=== PATIENT | female | born 1995 ===

== ENCOUNTER 2016-09-04 15:11 | Emergency (ER) | payer BC, OTHER ==
--- NOTE | 2016-09-04 15:43 | UC ---
Throat Pain/Nasal Wojciech HPI - HPI Summary HPI Summary: sore throat for 1 days has been exposed at work. - History of Current Complaint Chief Complaint: UCGeneralIllness Stated Complaint: SORE THROAT Time Seen by Provider: 09/04/16 15:34 Hx Obtained From: Patient Hx Last Menstrual Period: unsure - on nexplanon ?: No Onset/Duration: Sudden Onset, Lasting Hours Severity: Moderate Cough: None Associated Signs & Symptoms: Positive: Dysphagia - Allergies/Home Medications Allergies/Adverse Reactions: Allergies Allergy/AdvReac Type Severity Reaction Status Date / Time No Known Allergies Allergy Verified 09/04/16 15:31 PMH/Surg Hx/FS Hx/Imm Hx - Surgical History Surgical History: None - Family History Known Family History: Negative: Cardiac Disease, Hypertension - Social History Alcohol Use: None Substance Use Type: None Smoking Status (MU): Never Smoked Tobacco - Immunization History Most Recent Influenza Vaccination: Not the Season Review of Systems Constitutional: Fever Skin: Negative Eyes: Negative ENT: Sore Throat, Ear Ache, Nasal Discharge Respiratory: Cough Cardiovascular: Negative Gastrointestinal: Negative Genitourinary: Negative Motor: Negative Neurovascular: Negative Musculoskeletal: Negative Neurological: Headache Psychological: Negative All Other Systems Reviewed And Are Negative: Yes Physical Exam Triage Information Reviewed: Yes Appearance: Ill-Appearing, Pain Distress, Obese Vital Signs: Initial Vital Signs Temp 99.4 F 09/04/16 15:32 Pulse 95 09/04/16 15:32 Resp 16 09/04/16 15:32 BP 96/53 09/04/16 15:32 Pulse Ox 100 09/04/16 15:32 Vital Signs Reviewed: Yes Eye Exam: Normal Eyes: Positive: Conjunctiva Clear ENT: Positive: Pharyngeal erythema, TMs normal, TM bulging, Tonsillar swelling, Tonsillar exudate Dental Exam: Normal Neck exam: Normal Neck: Positive: Supple, Nontender, Enlarged Nodes @ - bilateral cervical Respiratory Exam: Normal Respiratory: Positive: Chest non-tender, No respiratory distress, No accessory muscle use, Wheezing, Inspiration Cardiovascular Exam: Normal Cardiovascular: Positive: RRR, No Murmur, Pulses Normal Abdominal Exam: Normal Abdomen Description: Positive: Nontender, No Organomegaly, Soft Bowel Sounds: Positive: Present Musculoskeletal Exam: Normal Musculoskeletal: Positive: Strength Intact, ROM Intact, No Edema Neurological Exam: Normal Neurological: Positive: Alert, Muscle Tone Normal Psychological Exam: Normal Skin Exam: Normal Throat Pain/Nasal Course/Dx - Course Course Of Treatment: hx obtained, exam performed, meds reviewed, rapid strep obtained and is positive solumedrol given for inflammation PEnicillin IM - Differential Dx/Diagnosis Differential Diagnosis/HQI/PQRI: Influenza, Laryngitis, Otitis Media, Pharyngitis, Sinusitis, URI Provider Diagnoses: Strep Pharyngitis Discharge - Discharge Plan Condition: Stable Disposition: HOME Patient Education Materials: Strep Throat (ED) Forms: *Work Release Additional Instructions: You received your antibiotic today, as well as a shot of steroids to help with the inflammation of your throat, Increase your fluid intake and get plenty of rest.
[2016-09-04] MEDS ORDERED: methylPREDNISolone 125 MG* 2 ML VIAL IM ONE (15:47)
[2016-09-04 15:52] VITALS: BP 96/53
[2016-09-04] MEDS ORDERED: Penicillin G Benzathine 1.2MU* 1,200,000 UNITS/2 ML SYR IM ONE (15:57)
== END 2016-09-04 16:38 | disposition home or self-care (01) ==
LOC: UCCORT 15:11
DX: J02.0 Streptococcal pharyngitis (principal)
CPT/HCPCS: 87651; 96372; 99211; G0463; J0558; J2930

== ENCOUNTER 2018-09-02 08:31 | Emergency (ER) | payer BC ==
--- OUTSIDE RECORDS SUMMARY | 2018-09-02 08:42 | XMS REPORT | Continuity of Care Document ---
:1995 External Reference #:[id number] Author Name Kendal Jarvis FNP Address [address] [place] [address] Care Team Providers Name Role Phone Kendal Jarvis NP Care Team Information Senior Windows Engineer Unavailable Kendal Jarvis NP Primary Care Physician Unavailable Payers Date Identification Numbers Payment Provider Subscriber Effective: 2018 Policy Number: [id number] [facility] Liliana Roe PayID: [id number] [address] [address] [place] [address] Advance Directives Description No Information Available Problems Active Problems Provider Date Obesity Kendal Jarvis FNP Onset: 04/15/2017 Inactive Problems No current problems or disability Onset: 06/10/2011 Inactive: 04/15/2017 Family History Date Family Member(s) Observation Comments Father Bipolar Disorder Mother Anxiety Paternal Grandfather Unknown Paternal Grandmother Unknown Maternal Grandmother No Current Problems Social History Type Date Description Comments Sex Unknown Diet Patient follows no dietary restrictions 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 ETOH Use Denies alcohol use Tobacco Use Start: Unknown Patient has never smoked Smoking Status Reviewed: 08/03/18 Patient has never smoked Allergies, Adverse Reactions, Alerts Description No Known Drug Allergies Medications Active Medications SIG Qnty Indications Ordering Provider Date Azithromycin 2 tablets by 2tabs Matheus, 07/02/2018 500mg mouth now Jenniferleigh, Tablets MANAGER FLOAT Leonela lot [id number] exp Matheus, 06/29/2018 13.5mg IUD 05/20 SALEEM Edmonds Escitalopram Oxalate TK 1 T PO qd Unknown 10mg Tablets History Medications Xulane apply to dry, hairless 3units N92.6 Matheus, 07/02/2016 - skin of the upper SOSA [facility]sP 09/22/2016 150-35mcg/24HR arms, lower Patches Weekly back/upperbuttocks or abdomen onceweekly for 3 weeks then off for 1 wee Depo-Provera 1 inj intramuscular 1unbernard Matheus, 09/27/2014 - every 3month SALEEM Edmonds 10/25/2015 150mg/ml Suspension Depo-Provera every 3 mo 1units Matheus, 09/19/2013 - Contraceptive Kendal [facility] 09/27/2014 150mg/ml Suspension Nexplanon placed 11/24/2014 Matheus, - 68mg Kendal [facility] 06/22/2017 Implant Loratadine TK 1 T PO qd Unknown - 10mg 09/22/2016 Tablets Dicyclomine HCL 1 PO as needed John Jo - 06/24/2018 10mg Capsules Escitalopram TK 1 T PO qd Unknown - Oxalate 06/24/2018 10mg Tablets Medications Administered in Office Medication SIG Qnty Indications Ordering Provider Date Depomedroxyporgesterone 150MG Matheus, 09/29/2014 Injection SALEEM [place]s Immunizations CPT Code Status Date Vaccine Lot # [id number] Given 12/22/2011 flu vaccination 65050 Given 01/02/2011 flu vaccination 67089 Given 01/02/2011 flu vaccination 74039 Refused 12/06/2015 Influenza Virus Split Children 6-35 Mo Of Age Intramuscular Use Vital Signs Date Vital Result Comment 08/03/2018 3:07pm BP Systolic 108 mmHg BP Diastolic 72 mmHg Heart Rate 78 /min Respiratory Rate 15 /min Height 62 inches 5'2" Weight 205.00 lb BMI (Body Mass Index) 37.5 kg/m2 BSA (Body Surface Area) 1.93 m2 Stewart body weight in kilograms 50 kg 06/29/2018 4:23pm BP Systolic 125 mmHg BP Diastolic 79 mmHg Heart Rate 85 /min Respiratory Rate 16 /min Height 62 inches 5'2" Weight 208.00 lb BMI (Body Mass Index) 38.0 kg/m2 BSA (Body Surface Area) 1.94 m2 Stewart body weight in kilograms 50 kg O2 % BldC Oximetry 99 % 06/24/2018 2:39pm BP Systolic 102 mmHg BP Diastolic 60 mmHg Heart Rate 85 /min Respiratory Rate 15 /min Height 62 inches 5'2" Weight 209.00 lb BMI (Body Mass Index) 38.2 kg/m2 BSA (Body Surface Area) 1.95 m2 Stewart body weight in kilograms 50 kg O2 % BldC Oximetry 99 % 05/14/2017 2:32pm BP Systolic Sitting Left Arm 118 mmHg BP Diastolic Sitting Left Arm 76 mmHg Heart Rate 84 /min Respiratory Rate 18 /min Height 62 inches 5'2" Weight 203.50 lb BMI (Body Mass Index) 37.2 kg/m2 BSA (Body Surface Area) 1.93 m2 Stewart body weight in kilograms 50 kg Last Menstrual Period [id number] 04/15/2017 10:48am BP Systolic Sitting Left Arm 114 mmHg BP Diastolic Sitting Left Arm 76 mmHg Heart Rate 80 /min Respiratory Rate 20 /min Height 62 inches 5'2" Weight 204.00 lb BMI (Body Mass Index) 37.3 kg/m2 BSA (Body Surface Area) 1.93 m2 Stewart body weight in kilograms 50 kg Last Menstrual Period [id number] 03/05/2017 3:15pm BP Systolic Sitting Left Arm 114 mmHg BP Diastolic Sitting Left Arm 74 mmHg Heart Rate 76 /min Respiratory Rate 18 /min Height 62 inches 5'2" Weight 202.00 lb BMI (Body Mass Index) 36.9 kg/m2 BSA (Body Surface Area) 1.92 m2 Stewart body weight in kilograms 50 kg 09/22/2016 10:44am BP Systolic Sitting Left Arm 122 mmHg BP Diastolic Sitting Left Arm 78 mmHg Heart Rate 72 /min Respiratory Rate 20 /min Height 62 inches 5'2" Weight 205.00 lb BMI (Body Mass Index) 37.5 kg/m2 BSA (Body Surface Area) 1.93 m2 Stewart body weight in kilograms 50 kg 07/02/2016 3:28pm BP Systolic Sitting Left Arm 120 mmHg BP Diastolic Sitting Left Arm 84 mmHg Body Temperature 98.6 F Heart Rate 100 /min Respiratory Rate 20 /min Weight 208.38 lb 05/15/2016 2:37pm BP Systolic 112 mmHg BP Diastolic 72 mmHg Body Temperature 98.7 F Heart Rate 94 /min Respiratory Rate 16 /min Height 62 inches 5'2" O2 % BldC Oximetry 97 % 12/06/2015 9:41am BP Systolic Sitting Left Arm 122 mmHg BP Diastolic Sitting Left Arm 72 mmHg Heart Rate 80 /min Respiratory Rate 18 /min Height 62 inches 5'2" Weight 195.00 lb BMI (Body Mass Index) 35.7 kg/m2 BSA (Body Surface Area) 1.89 m2 Stewart body weight in kilograms 50 kg 10/25/2015 11:02am BP Systolic Sitting Left Arm 108 mmHg BP Diastolic Sitting Left Arm 68 mmHg Heart Rate 88 /min Respiratory Rate 18 /min Height 62 inches 5'2" Weight 190.00 lb BMI (Body Mass Index) 34.7 kg/m2 BSA (Body Surface Area) 1.87 m2 Stewart body weight in kilograms 50 kg 09/29/2014 11:17am BP Systolic 116 mmHg BP Diastolic 66 mmHg Body Temperature 97.8 F Weight 174.00 lb 04/18/2014 2:47pm BP Systolic 118 mmHg BP Diastolic 76 mmHg Heart Rate 80 /min Respiratory Rate 18 /min Height 62 inches 5'2" Weight 167.00 lb 02/09/2014 11:52am BP Systolic 130 mmHg BP Diastolic 62 mmHg Heart Rate 80 /min Height 63 inches 5'3" Weight 175.00 lb 10/31/2013 2:30pm BP Systolic 118 mmHg BP Diastolic 66 mmHg Height 63 inches 5'3" Weight 171.00 lb 09/28/2013 9:48am BP Systolic 98 mmHg BP Diastolic 60 mmHg Body Temperature 99.1 F Heart Rate 76 /min Height 63 inches 5'3" Weight 169.00 lb 01/31/2013 1:49pm BP Systolic 116 mmHg BP Diastolic 64 mmHg Body Temperature 98.4 F Height 63 inches 5'3" Weight 165.00 lb 08/19/2012 7:05pm BP Systolic 102 mmHg BP Diastolic 70 mmHg Height 62 inches 5'2" Weight 161.00 lb 12/22/2011 4:08pm BP Systolic 118 mmHg BP Diastolic 70 mmHg Body Temperature 99.0 F Height 62 inches 5'2" Weight 154.00 lb 12/04/2011 3:06pm BP Systolic 108 mmHg BP Diastolic 68 mmHg Body Temperature 98.3 F Height 62 inches 5'2" Weight 149.00 lb 10/23/2011 10:04am BP Systolic 110 mmHg BP Diastolic 72 mmHg Body Temperature 97.2 F Height 62 inches 5'2" Weight 144.00 lb 07/29/2011 1:27pm BP Systolic 98 mmHg BP Diastolic 68 mmHg Height 63 inches 5'3" Weight 142.00 lb 06/10/2011 6:14pm BP Systolic 104 mmHg BP Diastolic 70 mmHg Height 63 inches 5'3" Weight 136.00 lb Results Test Date Facility Test Result H/L Range Note Urine Dipstick 08/03/2018 [facility] Ua Color Yellow Yellow Ua Clarity Clear Clear Ua Leuko neg Negative Ua Nitrite neg Negative Ua Urobilinogen 3.5 High 0.2 - 1.0 E.U./dL Ua Protein neg Negative Ua PH 6.0 Low 6.5-7.5 Ua Blood neg Negative Ua Specific [place] 1.025 1.010-1.030 Ua Ketones neg Negative Ua Bilirubin neg Negative Ua Glucose neg Negative Urine HCG (Qualitative) 06/29/2018 [facility] Inhouse Misc negative Urine Dipstick 06/29/2018 [facility] Inhouse Ua Color yellow Yellow Ua Clarity clear Clear Ua Leuko 1+ High Negative Ua Nitrite neg Negative Ua Urobilinogen 3.5 High 0.2 - 1.0 E.U./dL Ua Protein trace Negative Ua PH 5.0 Low 6.5-7.5 Ua Blood 1+ High Negative Ua Specific [place] 1.030 1.010-1.030 Ua Ketones trace Negative Ua Bilirubin 1+ High Negative Ua Glucose neg Negative Chlam/GC/Trichomonas 06/29/[address] [facility] [address] Ur Trichomonas NEGATIVE Negative 1 PCR, Ur [address] vaginalis,PCR [place], [place] [id number] [phone] Ur Chlamydia trachomatis,PCR POSITIVE Abnormal Negative Ur Neisseria gonorrhoeae,PCR NEGATIVE Negative 2 Urine Dipstick 06/24/2018 [facility] Inhouse Ua Color yellow Yellow Ua Clarity clear Clear Ua Leuko neg Negative Ua Nitrite neg Negative Ua Urobilinogen 0.2 0.2 - 1.0 E.U./L Ua Protein neg Negative Ua PH 6.5 6.5-7.5 Ua Blood small Negative Ua Specific [place] 1.020 1.010-1.030 Ua Ketones neg Negative Ua Bilirubin neg Negative Ua Glucose neg Negative Urine HCG (Qualitative) 06/24/2018 [facility] Inhouse Misc NEGATIVE Ua RFX Micro & Culture 05/11/2017 [facility] Urine Color YELLOW Yellow [address] [place] [address] [phone] Urine Clarity SL CLOUDY Clear Urine Glucose - Dipstick NEGATIVE mg/dL Negative Urine Bilirubin - Dipstick NEGATIVE Negative Urine Ketone TRACE mg/dL High Negative Urine Specific [place] >=1.030 N 1.010-1.030 Urine Blood MODERATE Abnormal Negative Urine PH 5.5 Low 6.5-7.5 Urine Protein - Dipstick NEGATIVE mg/dL Negative Urine Urobilinogen - Dipstick 0.2 E.U./dL N 0.2-1.0 Urine Nitrite - Dipstick NEGATIVE Negative Urine Leuk Esterase NEGATIVE Negative Urine RBC 0-2 rbc/hpf 0-2 Urine WBC 0-2 wbc/hpf 0-7 Urine Epithelial Cells FEW /lpf None Seen Urine Uric Acid Crystals FEW None Seen Urine Bacteria VERY FEW None Seen Source: URINE, CLEAN CAT <SEE NOTE> 4 Urine HCG 05/11/2017 [facility] Urine HCG NEGATIVE Negative 5 (Qualitative) [address] (Qualitative) [place] [address] [phone] Source: URINE, CLEAN CAT <SEE NOTE> 6 Differential-WBC Confirm 05/11/2017 [facility] Total Cells 100 #CELLS [address] [place] [address] [phone] Neutrophils% 59 % N 33-73 Lymph% 29 % N 20-42 Monocyte% 9 % N 0-10 Eosinophil% 3 % N 0-5 Platelet Estimate NORMAL Anisocytosis 1+ Microcytosis 1+ Ovalocytes 1+ Differential Comment FEW LRG PLTS SEE <SEE NOTE> 7 Slide Review 05/11/2017 [facility] Slide Review DIFF ORDERED [address] [place] [address] [phone] CBS 05/11/2017 [facility] White Blood 12.4 K/uL High 3.1-10. W/Automated [address] Count 7 [place] [address] [phone] Red Blood Count 4.79 M/uL N 3.90-5.40 Hemoglobin 12.7 gm/dL N 11.6-15.8 Hematocrit 38.5 % N 36.0-46.1 Mean Cell Volume 80.4 fl Low 80.9-99.0 Mean Corpuscular HGB 26.5 pg N 25.9-32.7 Mean Corpuscular HGB Conc 33.0 g/dL N 30.8-34.3 Platelet Count 271 K/uL N 155-360 Red Cell Distri Width SD 43.1 fl N 3-47 Red Cell Distri Width %CV 14.9 % High 11.7-14.4 Mean Platelet Volume 12.3 fL N 8.9-12.4 8 Neut# 7.85 K/uL High 1.8-7.0 Lymph # 3.58 K/uL N 1.0-4.0 [place] # 0.73 K/uL N 0.3-0.9 Eos # 0.18 K/uL N 0.0-0.5 Baso # 0.03 K/uL N 0.0-0.1 Comprehensive Metabolic 05/11/2017 [facility] Glucose 88 mg/dL N 74-[address] [place], [place] [id number] [phone] BUN 13 mg/dL N 7-18 Creatinine 0.4 mg/dL Low 0.6-1.3 Glom Filtration Rate, Estimate >60 mL/min >60 If >60 mL/min >60 9 BUN/Creat 32.5 ratio Sodium 140 mmol/L N 136-145 Potassium 4.1 mmol/L N 3.5-5.1 Chloride 109 mmol/L High 98-107 Carbon Dioxide 26 mmol/L N 21-32 Anion Gap 5 mEq/L Low 8-16 Calcium 9.1 mg/dL N 8.5-10.1 Total Protein 7.9 g/dL N 6.4-8.2 Albumin 3.9 g/dL N 3.4-5.0 Globulin 4.0 g/dL N 1.9-4.3 Alb/Glob 1.0 ratio Bilirubin,Total 0.3 mg/dL N 0.2-1.0 Sgot/Ast 9 U/L Low 15-37 10 SGPT/Alt 24 U/L N 12-78 Alkaline Phosphatase 90 U/L N 45-117 Affirm 04/15/[address] [facility] [address] Trichomonas Negative [Negative] [address] vaginal[address] Panel [place], [place] [address] [phone] Gardnerella vaginalis Negative [Negative] Val species Negative [Negative] 12 HPV High Risk 04/15/2017 [facility] HPV High Risk Results on [address] file Kit [place] [id number] [phone] Laboratory 09/04/2016 [facility] Laboratory Rapid Strep POSITIVE Abnormal Negative 14 test finding [phone] Molecular Affirm 07/02/[address] [facility] [address] Trichomonas Negative [Negative] [address] vaginalis Panel [facility] [id number] [phone] Gardnerella vaginalis Negative [Negative] Val species Negative [Negative] 16 Pap Plus HPV 12/06/2015 [facility] (DO Not Use) [facility] HR+ Abnormal 17 Affirm 12/06/2015 [facility] (DO Not Use) Val NEGATIVE 18 Gardnerella NEGATIVE Trichomonas NEGATIVE GC/CT+TV(STI Panel) 12/06/2015 [facility] (DO Not Use) Chlamydia NEGATIVE 19 GC NEGATIVE Trichomonas NEGATIVE Laboratory test 09/18/2014 [facility] Laboratory Throat Beta SEE RESULT 20 finding [phone] Strep Culture BELOW Chlamydia/GC 10/03/2013 N2N/CCD Import Chlamydia Negative Negative Jane Trachomatis, Jane Neisseria Gonorrhoeae, Jane Negative Negative Please note: See Note 21 Urine Screen 08/20/2013 N2N/CCD Import Urine Bilirubin - Negative Negative Dipstick Urine Blood Trace Negative Urine Clarity Clear Clear Urine Color Yellow Yellow Urine Glucose - Dipstick Negative mg/dL Negative Urine Ketone Negative mg/dL Negative Urine Leuk Esterase Negative Negative Urine Nitrite - Dipstick Negative Negative Urine PH 6.5 6.5-7.5 Urine Protein - Dipstick Negative mg/dL Negative Urine Specific [place] 1.025 1.010-1.030 Urine Urobilinogen - Dipstick 0.2 E.U./dL 0.2-1.0 CBC No Diff 01/31/2013 N2N/CCD Import Hematocrit 41 % 35-47 Hemoglobin 12.9 g/dL 12.0-16.0 Mean Corpuscular HGB Conc 31 g/dL 31-36 Mean Corpuscular Hemoglobin 25 pg Low 27-31 Mean Corpuscular Volume 81 fL 80-97 Mean Platelet Volume 10 um3 7.4-10.4 Platelet Count 282 10^3/uL 150-450 Red Blood Count 5.09 10^6/uL 4.0-5.4 Red Cell Distribution Width 15 % 10.5-15 White Blood Count 9.2 10^3/uL 4.8-10.8 Laboratory test 08/21/2012 N2N/CCD Import Chlamydia Trachomatis See Note 22 finding Culture Neisseria Gonorrhoeae Screen See Note 23 Chlamydia/GC 08/21/2012 N2N/CCD Import Chlamydia Negative Negative Amplification Trachomatis, Jane Neisseria Gonorrhoeae, Jane Negative Negative Please note: See Note 24 Laboratory test 12/04/2011 N2N/CCD Import (HCG) Negative Negative 25 finding Serum TSH 1.75 MIU/ML 0.34-5.60 CBC Auto Diff 12/04/2011 N2N/CCD Import Abs Basophils 0 0-0.2 Abs Eosinophils 0.1 0-0.6 Abs Lymphs 1.9 1.0-4.8 Abs Mononuclear 0.5 0-0.8 Absolute Neutrophil Count 5.0 1.5-7.7 Basophil % 0.2 % 0-2 Eosinophil % 1.5 % 0-6 Gran % 65.5 % 38-83 Hematocrit 36 % 35-47 Hemoglobin 12.1 g/dL 12.0-16.0 Lymph % 25.8 % 20-45 Mean Corpuscular HGB Cone 33 g/dL 32-36 Mean Corpuscular Hemoglob 27 pg 27-31 Mean Corpuscular Volume 80 um3 79-97 Mean Platelet Volume 10.2 um3 7.4-10.4 Mononuclear % 7.0 % 1-9 Platelet Count 238 CUMM 150-450 Red Cell Count 4.57 CUMM 4.2-5.4 Redcell Distribution WDTH 15 % 10.5-15 White Blood Count 7.6 CUMM 4.8-10.8 Laboratory test finding 04/26/2011 [facility] [place] Import Hold Clot For BB Collected Testing Rapid Plasma Reagin Nonreactive Nonreactive 26 CBC 04/26/2011 N2N/CCD Import Hematocrit 31.5 % Low 36.0-46.0 Hemoglobin 10.3 gm/dL Low 12.0-16.0 Mean Cell Volume 80.6 fl 77.0-95.0 Mean Corpuscular HGB 26.3 pg 25.0-30.0 Mean Corpuscular HGB Conc 32.7 g/dL 30.8-34.3 Mean Platelet Volume 11.9 fL 8.9-12.4 Platelet Count 240 K/uL 155-360 Red Blood Count 3.91 M/uL Low 4.10-5.10 Red Cell Distri Width %CV 14.9 % High 11.7-14.4 White Blood Count 8.8 K/uL 4.5-13.5 Urine Screen 04/26/2011 N2N/CCD Import Urine Bilirubin - Negative Negative Dipstick Urine Blood Negative Negative Urine Clarity Clear Clear Urine Color Yellow Yellow Urine Glucose - Dipstick Negative mg/dL Negative Urine Ketone Negative mg/dL Negative Urine Leuk Esterase Negative Negative Urine Nitrite - Dipstick Negative Negative Urine PH 7.0 6.5-7.5 Urine Protein - Dipstick Negative mg/dL Negative Urine Specific [place] 1.015 1.010-1.030 Urine Urobilinogen - Dipstick 0.2 E.U./dL 0.2-1.0 Laboratory test 03/28/2011 N2N/CCD Import Vaginal Strep Screen See Note 27 finding Dna Probe N. Gono + C. 03/28/2011 N2N/CCD Import Dna Probe For See Note 28 Trach. Chlamydia Trac. Dna Probe For N. Gonorrhoeae See Note 29 1 Z30.09 2 A negative result for either C. trachomatis and/or N. gonorrhoeae does not preclued an infection because results are dependent on adequate specimen collection, absence of inhibitors, and sufficient DNA to be detected. 3 STOMACH PAIN 4 URINE, CLEAN CATCH 5 FIRST MORNING SPECIMENS GENERALLY CONTAIN THE HIGHEST CONCENTRATION OF HCG AND ARE RECOMMENDED FOR EARLY DETECTION OF . Method: Quidel QuickVue One-Step Immunoassay 6 URINE, CLEAN CATCH 7 FEW LRG PLTS SEEN 8 05/11/172152: NEUT% previously reported as: 63.5 % Amended result called to: [] - 05/11/17 at 215205/11/172152: LYMPH % previously reported as: 28.9 % Amended result called to: [] - 05/11/17 at 215205/11/172152: MONO % previously reported as: 5.9 % Amended result called to: [] - 05/11/17 at 215205/11/172152: EO% previously reported as: 1.5 % Amended result called to: [] - 05/11/17 at 2153 02/12/18 2153: BAS% previously reported as: 0.2 % Amended result called to: [] - 05/11/17 at 2153 9 Note: Persistent reduction for 3 months or more in an eGFR <60 mL/min/1.73 m2 defines CKD. Patients with eGFR values >/=60 mL/min/1.73 m2 may also have CKD if evidence of persistent proteinuria is present. The original MDRD equation for estimated GFR is not valid for patients less than 18 years of age. Additional information may be found at www.kdoqi.org. 10 Values below the stated reference ranges of AST and ALT can be seen in normal populations. Clinical correlation is suggested. 11 Z01.419 12 Method: BD Affirm VPIII DNA Probe Assay 13 Hard copy of report to be sent by mail Report may be viewed in Clinical Review, or in PCI under Medical Record Forms 14 Tso: [id number] 15 N92.6 16 Method: BD Affirm VPIII DNA Probe Assay 17 Interpretation: LOW GRADE SQUAMOUS INTRAEPITHELIAL LESION: MILD DYSPLASIA (MINNIE 1) AND HPV CHANGE. Specimen Adequacy: SATISFACTORY FOR EVALUATION. Additional Findings: ENDOCERVICAL/TRANSFORMATION ZONE PRESENT. This liquid-based ThinPrep Pap Test was screened with the use of the ThinPrep Imaging System and was reported using [place] System descriptive nomenclature. Cytology Laboratory [address], [address] [place] [address] CYTOLOGY REPORT Name: Liliana Roe : 1995 (Age: 20) Sex: F Location: [facility] Med. Rec. # [id number] Date Collected: 12/06/2015 Billing #: [id number] Date Received: 12/06/2015 Requisition # [id number] Physician(s): KENDAL MONGE Source of Specimen: ENDOCERVICAL/ECTOCERVICAL THIN PREP Clinical Information: Date of Last Menstrual Period: Estefani rascon Electronic Signature Jose L Foreman MD Reported: 12/12/2015 Also seen by: ANIBAL Jimenez (ASCP) [facility] HPV High Risk Date Ordered: 12/10/2015 Status: Signed Out Date Reported: 12/11/2015 High Risk POSITIVE (HPV Types 16, 18, 31, 33, 35, 39, 45, 51, 52, 56, 58, 59, 66, 68) APTIMA Electronic Signature Namrata Brantley [facility] NitroPCR [facility] Dx Code(s): Z01.419 Z11.51 R87.810 A; R87.612 A63.0 18 Special Testing Laboratory [address], [address] [place] [address] AFFIRM VAGINOSIS / VAGINITIS REPORT Name: Liliana Roe : 1995 (Age: 20) Sex: F Location: [facility] Rec. # [id number] Date Collected: 12/06/2015 Billing #: [id number] Date Received: 12/06/2015 Requisition # [id number] Physician(s): KENDAL MONGE Source of Specimen: Vaginal Results: Val species DNA Probe NEGATIVE Gardnerella vaginalis DNA Probe NEGATIVE Trichomonas vaginalis DNA Probe NEGATIVE Reported: 12/07/2015 Electronic Signature anibal Josephine Cline [facility] NitroPCR [facility] Dx Code(s): Z01.419 19 Special Testing Laboratory [address], [address] [place] [address] STI REPORT Name: Liliana Roe : 1995 (Age: 20) Sex: F Location: [facility]. Rec. # [id number] Date Collected: 12/06/2015 Billing #: [id number] Date Received: 12/06/2015 Physician(s): KENDAL MONGE Specimen(s) Received: ThinPrep, APTIMA Date Ordered: 12/10/2015 Status: Signed Out Date Reported: 12/10/2015 Chlamydia trachomatis NEGATIVE Electronic Signature Namrata Brantley [facility] NitroPCR [facility] Date Ordered: 12/10/2015 Status: Signed Out Date Reported: 12/10/2015 Neisseria gonorrhoeae NEGATIVE Electronic Signature Namrata Brantley [facility] Office Center [facility] Date Ordered: 12/10/2015 Status: Signed Out Date Reported: 12/10/2015 Trichomonas vaginalis NEGATIVE Electronic Signature Namrata Brantley [facility] Office Center [facility] Dx Code(s): Z01.419 20 SEE RESULT BELOW Name: BELLELILIANA : [address]: Marcie Ocampo MD Acct: [id number] Unit: [id number] AGE: 19 Location: [facility] Re09/18/14 SEX: F Status: DEP ER SPEC: [id number] NONA: 09/18/14-[address] [facility] [address]: eGma Corcoran NP REQ: [id number] RECD: 09/18/14548 STATUS: CHRISTOPHER DELGADILLO DR: Marcie Solis MD _ SOURCE: THROAT SPDESC: ORDERED: Throat Beta Str Procedure Result Verified Site Throat Beta Strep Culture Final 09/20/14- 0844 ML Negative For Group A Beta Streptococcus * ML - [facility] ([facility]) . END OF REPORT * ML=Testing performed at [facility] DEPARTMENT OF PATHOLOGY, [address] [place] [address] Harjit Valerio M.D. Director [facility] # [id number] 21 Acceptable specimens for this test are male urethral swab, endocervical swab and liquid based pap specimens, vaginal swabs in APTIMA transports and first void urine. See online Directory of Services for test number for rectal and pharyngeal specimens. Performed at: [address] [id number] Food Server: Dianna Blandon MD, Phone: [phone] 22 ORDERED WRONG FIRST TIME 23 ORDERED WRONG FIRST TIME 24 Acceptable specimens for this test are male urethral swab, endocervical swab and liquid based pap specimens, vaginal swabs in APTIMA transports and first void urine. See online Directory of Services for test number for rectal and pharyngeal specimens. Performed at: [address] [id number] Food Server: Dianna Blandon MD, Phone: [phone] 25 If is still suspected, please repeat test after 48 to 72 hours. . This test detects intact HCG only and is indicated for the early detection of . 26 PENDING; TEST PERFORMED ON MONDAYS AND THURSDAYS 27 NO GROUP B STREPTOCOCCI ISOLATED 28 NEGATIVE FOR CHLAMYDIA TRACHOMATIS BY DNA HYBRIDIZATION ASSAY. THIS TEST IS APPROVED FOR OCULAR AND UROGENITAL SITES ONLY. 29 NEGATIVE FOR NEISSERIA GONORRHOEAE BY DNA HYBRIDIZATION ASSAY. THIS METHOD IS APPROVED FOR UROGENITAL SITES ONLY. Procedures Date Code Description Status 06/29/2018 45867 Insertion Of Intrauterine Device Completed 05/25/2017 57937 Removal Of Contraceptive Completed 11/24/2014 89279 Insertion, Non-Biodegradable Drug Delivery Implant Completed 09/29/2014 54541 Theraputic Or Diagnostic Injection Completed 06/10/2011 58385 Post- Care Only Completed 04/27/2011 52682 Vaginal Delivery Global Care Completed 04/27/2011 93337 Anesthesia,Neuraxial Labor Completed 04/23/2011 10850 Antepartum 7 Or More Total Office Visit Completed 04/17/2011 45160 Antepartum 7 Or More Total Office Visit Completed 04/10/2011 07803 Antepartum 7 Or More Total Office Visit Completed 04/03/2011 06236 Antepartum 7 Or More Total Office Visit Completed 03/27/2011 22481 Antepartum 7 Or More Total Office Visit Completed 03/13/2011 04961 Antepartum 7 Or More Total Office Visit Completed 02/27/2011 88215 Antepartum 7 Or More Total Office Visit Completed 02/06/2011 46252 Antepartum 7 Or More Total Office Visit Completed 01/02/2011 99552 Antepartum 7 Or More Total Office Visit Completed 12/03/2010 64121 Antepartum 7 Or More Total Office Visit Completed 10/28/2010 26296 Antepartum 7 Or More Total Office Visit Completed Encounters Type Date Location Provider Dx Diagnosis Office Visit 06/29/2018 Family Sherry Jarvis Z30.430 Encounter for 4:00p [place], insertion of MANAGER FLOAT intrauterine contraceptive device Office Visit 06/24/2018 Family Sherry Jarvis Z30.09 Encounter for oth 2:30p [place] general coun and MANAGER FLOAT advice on contraception N92.6 Irregular menstruation, unspecified Office Visit 05/14/2017 Family Jarvis, R10.84 Generalized 2:30p SALEEM Aguero abdominal pain RD Office Visit 04/15/2017 Family Jarvis Z01.419 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 10:00a Medicine [place], MANAGER FLOAT exam (general) RD (routine) w/o abn findings E66.9 Obesity, unspecified Z68.37 Body mass index (BMI) 37.0-37.9, adult Office Visit 03/05/2017 Family Jarvis, B36.0 Pityriasis 3:00p Medicine [place] Kendal, MANAGER FLOAT versicolor RD Z30.09 Encounter for ot general coun and advice on contraception Office Visit 09/22/2016 Family [place], N92.6 Irregular 10:45a Medicine [place] Kendal, MANAGER FLOAT menstruation, RD unspecified Office Visit 07/02/2016 Family [place], N92.6 Irregular 3:00p Medicine [place] Kendal, MANAGER FLOAT menstruation, RD unspecified Office Visit 05/15/2016 Family DahlJamisonSamara J30.9 Allergic rhinitis, 3:00p Medicine [facility] [facility] unspecified RD H61.23 Impacted cerumen, bilateral J06.9 Acute upper respiratory infection, unspecified Office Visit 12/06/2015 Family Jarvis, Z01.419 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 Recommend consistent condom use to prevent [id number] Irregular menstruation, unspecifiedComments:Discussed that irregular bleeding may be due to recent infection vs. body acclimating to new IUD. Give 3 months/3 cycles and if periods still irregular contact office.
[2018-09-02 08:48] VITALS: BP 111/63
--- NOTE | 2018-09-02 09:38 | UC ---
Eye Complaint HPI - HPI Summary HPI Summary: Right eye burning sensation last evening for about an hour, without photophobia or discharge. 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 No respiratory symptoms. - History of Current Complaint Chief Complaint: UCEye Stated Complaint: BILATERAL EYE CONCERN Time Seen by Provider: 09/02/18 09:26 Hx Obtained From: Patient Hx Last Menstrual Period: "Maybe two weeks ago" (Leonela IUD) Onset/Duration: Sudden Onset, Lasting Hours Timing: Intermittent Episode Lasting Severity Initially: Mild Severity Currently: None Pain Intensity: 0 Character: Dull Aggravating Factor(s): Nothing Alleviating Factor(s): Nothing Associated Signs And Symptoms: Positive: Negative - Risk Factors Penetrating Injury Risk Factor: Negative - Allergies/Home Medications Allergies/Adverse Reactions: Allergies Allergy/AdvReac Type Severity Reaction Status Date / Time No Known Allergies Allergy Verified 09/02/18 08:44 Home Medications: Home Medications Levonorgestrel (IUD) (NF) [Mirena (NF)] 20 mcg IU ONCE 09/02/18 [History Confirmed 09/02/18] PMH/Surg Hx/FS Hx/Imm Hx Previously Healthy: Yes - Surgical History Surgical History: None - Family History Known Family History: Positive: Non-Contributory Negative: Cardiac Disease, Hypertension - Social History Lives: With Family Alcohol Use: Occasionally Substance Use Type: None Smoking Status (MU): Never Smoked Tobacco - Immunization History Most Recent Influenza Vaccination: Not the Season Review of Systems All Other Systems Reviewed And Are Negative: Yes Eyes: Positive: Other - burning sensation right eye ENT: Positive: Negative Respiratory: Positive: Negative Cardiovascular: Positive: Negative Gastrointestinal: Positive: Negative Genitourinary: Positive: Negative Motor: Positive: Negative Neurovascular: Positive: Negative Musculoskeletal: Positive: Negative Neurological: Positive: Negative Psychological: Positive: Negative Is Patient Immunocompromised?: No Physical Exam Triage Information Reviewed: Yes Appearance: Well-Appearing Vital Signs: Initial Vital Signs Temp 99 F 09/02/18 08:43 Pulse 70 09/02/18 08:43 Resp 18 09/02/18 08:43 BP 111/63 09/02/18 08:43 Pulse Ox 100 09/02/18 08:43 Eye Exam: Other - NOLVIA, no photophobia, no drainage. Eyes: Positive: Conjunctiva Clear ENT: Positive: Pharynx normal, Other - bilateral cerumen Neck: Positive: Supple, Nontender, No Lymphadenopathy Respiratory: Positive: Lungs clear, Normal breath sounds Cardiovascular: Positive: RRR, No Murmur Musculoskeletal Exam: Normal Neurological: Positive: Alert Psychological Exam: Normal Skin Exam: Normal Eye Complaint Course/Dx - Course Course Of Treatment: compressing prn - Differential Dx/Diagnosis Differential Diagnosis/HQI/PQRI: Conjunctivitis, Other - allergies Provider Diagnosis: Irritation of right eye Discharge - Sign-Out/Discharge Documenting (check all that apply): Patient Departure All imaging exams completed and their final reports reviewed: No Studies - Discharge Plan Condition: Stable Disposition: HOME Patient Education Materials: Conjunctivitis (ED) Forms: *Work Release Referrals: Yue Jarvis NP [Primary Care Provider] - Additional Instructions: Although exposed to conjunctiviits, you do not have active infection. Likely the eye irritation was mild allergy or exposure. Use cold compresses as needed. - Billing Disposition and Condition Condition: STABLE Disposition: Home
== END 2018-09-02 09:47 | disposition home or self-care (01) ==
LOC: UCCORT 08:31
DX: H57.89 Other specified disorders of eye and adnexa (principal)
CPT/HCPCS: 99211; G0463